=== PATIENT | female | born 1980 | race Caucasian/White ===

== ENCOUNTER 2017-06-23 14:54 | Emergency (ER) | payer OTHER ==
[2017-06-23 15:01] VITALS: BP 126/58; BMI 37.2
--- NOTE | 2017-06-23 15:33 | DR.GENAD ---
HPI - PCP Primary Care Physician: Ilya - Complaint/Symptoms Chief Complaint Doctors Comments: Patient denies fever, vomiting or diarrhea. She admits to sore throat for past two to three days. Chief Complaint:: "For about 4 days I have been having a really sore throat that comes and goes. I can't even eat when it's hurting. I threw up yesterday as well and it was mostly water. I have been having a headache that comes and goes as well with the sore throat." - Source History Provided: Patient - Mode of Arrival Mode of Arrival: Ambulatory - Timing Onset of Chief Complaint: 06/19/17 PMH - PMH Past Medical History: Yes Past Medical History: Migraines Past Surgical History: Yes Surgical History: - Family History History of Family Medical Conditions: Yes Family Medical History: Diabetes Mellitus, Cancer, [place], Coronary Artery Disease, Hypertension - Social History Does patient currently use any type of tobacco product: Yes Have you used tobacco products in the last 12 months: Yes Type of Tobacco Use: Cigarettes Does any household member use tobacco: Yes Alcohol Use: None Do you use any recreational Drugs:: No Lives With: Family Lives Where: Home - infectious screening In the last 2 months have you had wt loss of >10#?: NO Have you had fever, night sweats or hemotysis?: No Have you traveled outside the country in the last 6 months?: No Isolation: Standard ROS - Review of Systems Eyes: No Symptoms Reported ENTM: No Symptoms Reported Respiratoy: No Symptoms Reported Cardiovascular: No Symptoms Reported Gastrointestinal/Abdominal: No Symptoms Reported Genitourinary: No Symptoms Reported Neurological: No Symptoms Reported Musculoskeletal: No Symptoms Reported Integumentary: No Symptoms Reported Hematologic/Lymphatic: No Symptoms Reported Endocrine: No Symptoms Reported Psychiatric: No Symptoms Reported PE - Vital Signs Vitals: Temperature 97.9 F Pulse Rate 110 Respiratory Rate 17 Blood Pressure [Left Arm] 118/66 Blood Pressure 126/58 O2 Sat by Pulse Oximetry 98 - General General Appearance: Alert, In No Apparent Distress - Head Head Exam: Normal Inspection, Atraumatic - Eyes Eye exam: Normal Appearance, PERRL, EOMI - ENT ENT Exam: Normal Exam External Ear Exam: Normal External Inspection TM/Canal Exam: Bilateral Normal Nose Exam: Normal Nose Exam Mouth Exam: Normal Inspection Throat Exam: Normal Inspection - Neck Neck Exam: Normal Inspection, Full ROM - Chest Chest Inspection: Normal Inspection - Respiratory Respiratory Exam: Normal Lung Sounds Bilat Respiratory Exam: Bilateral Clear to Auscultation - Cardiovascular Cardiovascular Exam: Regular Rate, Normal Rhythm - Abdominal Exam Abdominal Exam: Normal Inspection Abdominal Tenderness: negative: RUQ, RLQ, LUQ, LLQ, Epigastrium, Suprapubic, Diffuse, Mild, Moderate, Severe, Other - Extremities Extremities Exam: Normal Inspection, Full ROM - Back Back Exam: Normal Inspection, Full ROM - Neurologic Neurological Exam: Alert, Oriented X3, CN II-XII Intact - Psychiatric Psychiatric Exam: Normal Affect - Skin Skin Exam: Warm, Dry, Intact Course - Reevaluation 1st: Unchanged ROR - Labs Reviewed Laboratory Results Reviewed?: Yes (strep negative) Laboratory: Streptococcus Screen Negative (NEGATIVE) 06/23/17 15:32 - Diagnosis Discharge Problem: Viral illness - Discharge Plan Condition: Stable - Follow ups/Referrals Follow ups/Referrals: DIAMOND DELUNA [Primary Care Provider] - 3 days - Instructions
== END 2017-06-23 16:21 | disposition home or self-care (01) ==
LOC: ER 15:06
DX: B97.89 Other viral agents as the cause of diseases classified elsewhere (principal); B95.61 Methicillin susceptible Staphylococcus aureus infection as the cause of diseases classified elsewhere
CPT/HCPCS: 87070; 87077; 87186; 87880; 99282

== ENCOUNTER 2025-06-23 00:30 | Observation (INO) ==
[2025-06-23 00:43] VITALS: BMI 36.9
[2025-06-23 01:11] LABS: MEAN PLATELET VOLUME 9.0 fL (7.4-11.0); RED CELL DISTRIBUTION WIDTH 18.0 % (11.6-16.5)
[2025-06-23 01:16] LABS: SERUM PREGNANCY TEST, QUAL NEGATIVE <10 mIU/mL
[2025-06-23 01:23] LABS: COR CA(FOR HYPOALB) 8.9 mg/dL (8.5-10.1); CREATININE 0.64 mg/dL (0.55-1.02); eGFR NON BLACK RACES > 60 (>60)
[2025-06-23 01:26] LABS: PLATELET MORPHOLOGY COMMENT NORMAL (NORMAL)
[2025-06-23 02:04] LABS: BLOOD/HEMOGLOBIN,URINE 2+ (NEGATIVE); LEUKOCYTE ESTERASE ,URINE NEGATIVE (NEGATIVE); NITRITES,URINE NEGATIVE (NEGATIVE)
--- NOTE | 2025-06-23 02:15 | CT ---
EXAM: CT ABDOMEN AND PELVIS WITHOUT CONTRAST HISTORY: epigastric pain ; COMPARISON: None TECHNIQUE: Axial images were obtained of the abdomen and pelvis without IV contrast. Sagittal and coronal reformatted images were provided. All images were reviewed in a variety of windows and levels. RADIATION REDUCTION TECHNIQUE: Automated exposure control, adjustment of the mA or kV according to patient size, or iterative reconstruction techniques were used. FINDINGS: Please note that lack of IV contrast does limit evaluation of the soft tissues and vascular detail. The visualized lower lung zones are clear. The heart size is within normal limits. There is no evidence of a pericardial effusion. The liver, spleen, pancreas, adrenal glands, and kidneys are grossly unremarkable. Cholelithiasis. There is no evidence of stones or signs of obstructive uropathy. The stomach, small bowel, and colon are grossly unremarkable. A few scattered diverticula are seen without evidence of diverticulitis. There are no inflammatory changes in the right lower quadrant to suggest secondary signs of acute appendicitis. Normal appendix right lower quadrant. There is no evidence of retroperitoneal or mesenteric lymphadenopathy. The uterus is present. Small fat containing umbilical hernia. There are 2 fat containing infraumbilical ventral hernias. The visualized bones are intact. There are no concerning lytic or blastic lesions identified. IMPRESSION: Cholelithiasis. Small fat containing umbilical hernia. 2 fat containing infraumbilical hernias. Mild colonic diverticulosis without evidence of diverticulitis. No acute abdominal or pelvic pathology THIS IS AN ELECTRONICALLY VERIFIED FINAL REPORT 06/23/2025 2:12 AM - Electronically signed by Tito Mccollum MD
[2025-06-23 02:22] LABS: APPEARANCE,URINE CLEAR (CLEAR); SQUAMOUS EPITHELIAL CELL,UR FEW /HPF (NEGATIVE)
[2025-06-23] MEDS: LEVSIN/MAALOX/LIDOC VISC PO ONE (02:27)
--- NOTE | 2025-06-23 02:41 | ED.ABDFE ---
HPI Time Seen Time Seen by Provider: 06/23/25 02:35 PCP Primary Care Physician: nfd Complaint Doctors Chief Complaint Comments: Patient with complaints of 2 days of right upper quadrant abdominal pain. Patient states she has had some nausea and that even has had several episodes of vomiting. Patient states she has been unable to keep food down. Denies fever. Chief Complaint:: pt ambulated to triage with complaint of epigastric pain x 2 days nausea and vomiting COVID-19 Coronavirus risk:travel/contact w/high risk person: No Has patient experienced Coronavirus symptoms: No Source History Provided: Patient Mode of arrival Mode of Arrival: Ambulatory Timing Onset of Chief Complaint: 06/20/25 PMH PMH Past Medical History: Yes Past Medical History: Migraines and GERD Past Surgical History: Yes Surgical History: Family History History of Family Medical Conditions: Yes Family Medical History: Diabetes Mellitus, [place], Coronary Artery Disease and Hypertension Social History Does patient currently use any type of tobacco product: No Have you used tobacco products in the last 12 months: No Type of Tobacco Use: None Does any household member use tobacco: No Alcohol Use: None Do you use any recreational Drugs:: No Lives With: Family Lives Where: Home Travel Risk Coronavirus risk:travel/contact w/high risk person: No Has patient experienced Coronavirus symptoms: No Infectious screening In the last 2 months have you had wt loss of >10#?: NO Have you had fever, night sweats or hemotysis?: No Have you traveled outside the country in the last 6 months?: No Isolation: Standard ROS Review of Systems Constitutional: No Symptoms Reported Eyes: No Symptoms Reported ENTM: No Symptoms Reported Respiratoy: No Symptoms Reported Cardiovascular: No Symptoms Reported Gastrointestinal/Abdominal: See HPI, Abdominal Pain, Nausea and Vomiting; negative Constipation or Diarrhea Genitourinary: No Symptoms Reported Neurological: No Symptoms Reported Musculoskeletal: No Symptoms Reported Integumentary: No Symptoms Reported Hematologic/Lymphatic: No Symptoms Reported Endocrine: No Symptoms Reported Psychiatric: No Symptoms Reported All Other Systems: Reviewed and Negative PE Vital Signs Vitals: Vital Signs Temperature 98.3 F Pulse Rate 82 Respiratory Rate 18 Respiratory Rate 18 Blood Pressure 168/93 O2 Sat by Pulse Oximetry 99 General Limitations: No Limitations and Language Barrier General Appearance: Alert and In No Apparent Distress Head Head Exam: Normal Inspection Eyes Eye exam: Normal Appearance Neck Neck Exam: Normal Inspection Chest Chest Inspection: Normal Inspection Respiratory Respiratory Exam: Normal Lung Sounds Bilat Cardiovascular Cardiovascular Exam: Regular Rate and Normal Rhythm Abdominal Exam Abdominal Exam: Normal Bowel Sounds, Soft and Tenderness (Right upper quadrant); negative Distention, Guarding, Rebound, Rigidity, Organomegaly or Ascites Rectal Rectal Exam: Deferred Neurologic Neurological Exam: Alert and Oriented X3 Psychiatric Psychiatric Exam: Normal Affect and Normal Mood Skin Skin Exam: Warm, Dry and Intact COURSE Treatment Treatment: Cholelithiasis. Some improvement with GI cocktail. Discussed multiple diagnostic and therapeutic options and patient would like to be admitted to see surgeon in the morning. Patient requested to see Dr. Felix. Consultation Called: 02:50 Consultation Comments: Discussed case with Dr. Cordova and he is agreeable to admission. ROR Labs Reviewed 06/23/25 00:50 06/23/25 00:50 Laboratory: WBC 1.5 X10^3/uL (3.6-10.0) L* 06/23/25 00:50 RBC 4.09 X10^6/uL (3.5-5.4) 06/23/25 00:50 Hgb 12.7 g/dL (12.0-16.0) 06/23/25 00:50 Hct 37.5 % (36.0-47.0) 06/23/25 00:50 MCV 91.8 fL (80.0-100.0) 06/23/25 00:50 MCH 31.2 pg (27.0-34.0) 06/23/25 00:50 MCHC 34.0 g/dL (33.0-35.0) 06/23/25 00:50 RDW 18.0 % (11.6-16.5) H 06/23/25 00:50 Plt Count 148 X10^3/uL (150.0-450.0) L 06/23/25 00:50 Plt Count Comment Decreased (ADEQUATE) A 06/23/25 00:50 MPV 9.0 fL (7.4-11.0) 06/23/25 00:50 Neut % (Auto) 17.8 % (42.0-75.0) L 06/23/25 00:50 Lymph % (Auto) 68.3 % (21.0-51.0) H 06/23/25 00:50 [place] % (Auto) 10.9 % (0.0-13.0) 06/23/25 00:50 Eos % (Auto) 1.6 % (0.9-2.9) 06/23/25 00:50 Baso % (Auto) 1.4 % (0.2-1.0) H 06/23/25 00:50 Neut # (Auto) 0.3 x10^3/uL (2.2-4.8) L 06/23/25 00:50 Lymph # (Auto) 1.0 X10^3/uL (1.3-2.9) L 06/23/25 00:50 [place] # (Auto) 0.2 x10^3/uL (0.3-0.8) L 06/23/25 00:50 Eos # (Auto) 0.0 x10^3/uL (0.0-0.2) 06/23/25 00:50 Baso # (Auto) 0.0 X10^3/uL (0.0-0.1) 06/23/25 00:50 Absolute Nucleated RBC 0.2 /100WBC 06/23/25 00:50 Total Counted 100 06/23/25 00:50 Neutrophils % (Manual) 24 % (39-76) L 06/23/25 00:50 Lymphocytes % (Manual) 64 % (13-43) H 06/23/25 00:50 Monocytes % (Manual) 10 % (4-9) H 06/23/25 00:50 Eosinophils % (Manual) 2 % (0-6) 06/23/25 00:50 Plt Morphology Comment Normal (NORMAL) 06/23/25 00:50 RBC Morphology Normal (NORMAL) 06/23/25 00:50 Sodium 138 mmol/L (136-145) 06/23/25 00:50 Corrected Sodium TNP 06/23/25 00:50 Potassium 4.0 mmol/L (3.5-5.1) 06/23/25 00:50 Chloride 103 mmol/L (98-107) 06/23/25 00:50 Carbon Dioxide 27.5 mmol/L (21-32) 06/23/25 00:50 BUN 16 mg/dL (7-18) 06/23/25 00:50 Creatinine 0.64 mg/dL (0.55-1.02) 06/23/25 00:50 Est GFR (MDRD) Af Amer > 60 (>60) 06/23/25 00:50 Est GFR (MDRD) Non-Af > 60 (>60) 06/23/25 00:50 Glucose 106 mg/dL (65-99) H 06/23/25 00:50 Calcium 8.2 mg/dL (8.5-10.1) L 06/23/25 00:50 Corrected Calcium 8.9 mg/dL (8.5-10.1) 06/23/25 00:50 Total Bilirubin 0.40 mg/dL (0.2-1.0) 06/23/25 00:50 AST 13 Units/L (15-37) L 06/23/25 00:50 ALT 16 Units/L (12-78) 06/23/25 00:50 Alkaline Phosphatase 74 Units/L (46-116) 06/23/25 00:50 Total Protein 7.2 g/dL (6.4-8.2) 06/23/25 00:50 Albumin 3.1 g/dL (3.4-5.0) L 06/23/25 00:50 Globulin 4.1 g/dL (2.5-4.5) 06/23/25 00:50 Albumin/Globulin Ratio 0.8 Ratio (1.1-2.1) L 06/23/25 00:50 Amylase 19 Units/L (25-115) L 06/23/25 00:50 Lipase 18 Units/L (16-77) 06/23/25 00:50 HCG, Qual Negative <10 mIU/mL 06/23/25 00:50 Specimen Type Clean catch urine 06/23/25 01:50 Urine Color Yellow (YELLOW) 06/23/25 01:50 Urine Appearance Clear (CLEAR) 06/23/25 01:50 Urine pH 6.0 (5.0 - 8.0) 06/23/25 01:50 Ur Specific [place] 1.025 (1.000-1.030) 06/23/25 01:50 Urine Protein 2+ (NEGATIVE) 06/23/25 01:50 Urine Glucose (UA) Negative (NEGATIVE) 06/23/25 01:50 Urine Ketones 4+ (NEGATIVE) 06/23/25 01:50 Urine Blood 2+ (NEGATIVE) 06/23/25 01:50 Urine Nitrite Negative (NEGATIVE) 06/23/25 01:50 Urine Bilirubin 1+ (NEGATIVE) 06/23/25 01:50 Urine Urobilinogen 2+ (NORMAL) 06/23/25 01:50 Ur Leukocyte Esterase Negative (NEGATIVE) 06/23/25 01:50 Urine RBC 0-2 /HPF (0-3) 06/23/25 01:50 Urine WBC 0-2 /HPF (0-5) 06/23/25 01:50 Ur Squamous Epith Cells Few /HPF (NEGATIVE) 06/23/25 01:50 Ur Transition Epith Cell Few /HPF (NEGATIVE) 06/23/25 01:50 Urine Bacteria Trace /HPF (NEGATIVE) 06/23/25 01:50 Ur Culture Indicated? No/not indicated 06/23/25 01:50 Opioid Opioid Risk Tool Age (Odilon box if 16-45): Yes History of Preadolescent Sexual Abuse: No Total: 1 Total Score Risk Category: Low Risk Copyright: Tenzin SERRA predicting aberrant behaviors Discharge Plan Diagnosis Discharge Problem: Cholelithiasis, Abdominal pain Discharge Plan Patient Disposition: 09 ADMITTED INPATIENT Condition: Stable Prescriptions: No Action [facility] Concerns: Post Hospitalization: new medications and changes needed to prevent readmission or further decline. Pt educated and given instructions on all concerns. Plan of Treatment: Continue with present treatment and follow up plan. Pt is to keep follow up appointment as instructed and take medications as ordered. Orders to Discharge Patient Discharge Orders: Transfer (Routine); Ordered 06/23/25 Ordered By: Fortino Varghese Follow ups/Referrals Follow ups/Referrals: NFD,None [Primary Care Provider] - 3 days Instructions Stand Alone Forms: Find Help Web Site, Post Hospital Follow Up Care Print Language: ERITREAN
[2025-06-23] MEDS ORDERED: NS 250 ML IV 25 ML IV PRN (02:46)
[2025-06-23] MEDS: ZOSYN VIAL 3.375 GRAMS 3.375 G in NS 100 ML IV 100 ML IV ONE (02:56)
[2025-06-23] MEDS: NS 1,000 ML IV 1,000 ML IV ONE (02:56)
[2025-06-23] MEDS ORDERED: CONSULT PHARMACY - POTASSIUM & MAGNESIUM XX SCH ×2 (03:17→07:00)
[2025-06-23] MEDS ORDERED: TYLENOL 325 MG TAB PO PRN (03:17)
[2025-06-23] MEDS ORDERED: ZOSYN VIAL 3.375 GRAMS 3.375 G in NS 100 ML IV 100 ML IV ONE (03:17)
[2025-06-23] MEDS: MORPHINE SULFATE INJ 2 MG INJ IVP PRN (03:53)
[2025-06-23] MEDS: ZOFRAN INJ 4 MG VIAL IVP PRN (03:54)
[2025-06-23] MEDS: LEVSIN/MAALOX/LIDOC VISC ONE (04:35)
[2025-06-23 06:10] LABS: RED CELL DISTRIBUTION WIDTH 17.5 % (11.6-16.5)
[2025-06-23 06:18] LABS: COR CA(FOR HYPOALB) 8.9 mg/dL (8.5-10.1); CREATININE 0.50 mg/dL (0.55-1.02); eGFR NON BLACK RACES > 60 (>60)
[2025-06-23 06:19] LABS: MEAN PLATELET VOLUME 9.3 fL (7.4-11.0)
[2025-06-23] MEDS ORDERED: ZOSYN VIAL 3.375 GRAMS 3.375 G in NS 100 ML IV 100 ML IV SCH (06:29)
[2025-06-23 06:42] LABS: PLATELET MORPHOLOGY COMMENT NORMAL (NORMAL)
--- NOTE | 2025-06-23 07:48 | EKG ---
Test Reason : chest pain Blood Pressure : */* mmHG Vent. Rate : 65 BPM Atrial Rate : 65 BPM P-R Int : 198 ms QRS Dur : 100 ms QT Int : 414 ms P-R-T Axes : 20 66 48 degrees QTc Int : 430 ms Normal sinus rhythm Normal ECG No previous ECGs available Confirmed by Demarco Curry MD ([id number]) on 06/24/2025 5:59:27 AM Referred By: Confirmed By: Demarco Curry MD
[2025-06-23] MEDS: K-RIDER 10 MEQ/100 ML WATER 10 MEQ/100 ML BAG IV SCH (10:24)
[2025-06-23] MEDS: NS 1,000 ML IV 1,000 ML IV SCH (10:24)
--- NOTE | 2025-06-23 10:41 | DR.H&P ---
H&P History & Physical for Day of: H&P Date: 06/23/25 Chief Complaint Chief Complaint: abdominal pain nausea/vomiting History of Present Illness History of Present Illness: Patient is a 44-year-old female with no past medical history reporting that for the past 2 to 3 days she has been having worsening abdominal pain. She also reports having associated nausea and vomiting. Having difficulty when she eats anything. Denies fevers or chills. Reports pain is not epigastric and right upper quadrant area. Labs/imaging: WBC 1.3, hemoglobin 11.8, platelets 139, sodium 141, potassium 3.8, creatinine 0.50, glucose 98, AST 11, ALT 9, ALP 62, UA negative, CT abdomen pelvis was obtained that revealed cholelithiasis. Patient was admitted for cholelithiasis with nausea and vomiting, dehydration. Will keep n.p.o. at this time. General surgery was consulted-Dr. Hawkins Will start patient on IV fluids normal saline at 75 mL/h. Zosyn as needed for antiemetics. Antibiotics IV Zosyn. Patient does have leukopenia and was unaware of any blood abnormalities from previous labs that she may have had done outpatient. Will continue to monitor and if indicated on discharge would probably need hematology referral. Otherwise continue with current treatment plan. Follow-up recommendations by surgery. Continue to closely monitor and follow-up labs/imaging. Past Medical History Past Medical History: Migraines and GERD Past Surgical History Surgical History: Family History Family Medical History: Diabetes Mellitus, Cancer and [place] Social History Does patient currently use any type of tobacco product: No Have you used tobacco products in the last 12 months: No Type of Tobacco Use: Cigarettes How many years tobacco product used: 12 Does any household member use tobacco: Yes Alcohol Use: Occasionally Drug Use: Marijuana Medications Home Medications: Home Medications Medication Instructions Recorded Confirmed Type NK 06/23/25 06/23/25 History Allergies Allergies Allergy/AdvReac Type Severity Reaction Status Date / Time iodine Allergy Verified 06/23/17 14:56 latex Allergy Verified 06/23/17 14:56 shrimp Allergy Verified 06/23/17 14:56 Labs 06/23/25 05:17 06/23/25 05:17 Labs: Laboratory WBC 1.3 X10^3/uL (3.6-10.0) L* 06/23/25 05:17 RBC 3.80 X10^6/uL (3.5-5.4) 06/23/25 05:17 Hgb 11.8 g/dL (12.0-16.0) L 06/23/25 05:17 Hct 34.7 % (36.0-47.0) L 06/23/25 05:17 MCV 91.3 fL (80.0-100.0) 06/23/25 05:17 MCH 31.1 pg (27.0-34.0) 06/23/25 05:17 MCHC 34.0 g/dL (33.0-35.0) 06/23/25 05:17 RDW 17.5 % (11.6-16.5) H 06/23/25 05:17 Plt Count 139 X10^3/uL (150.0-450.0) L 06/23/25 05:17 Plt Count Comment Decreased (ADEQUATE) A 06/23/25 05:17 MPV 9.3 fL (7.4-11.0) 06/23/25 05:17 Neut % (Auto) 21.4 % (42.0-75.0) L 06/23/25 05:17 Lymph % (Auto) 52.7 % (21.0-51.0) H 06/23/25 05:17 [place] % (Auto) 23.8 % (0.0-13.0) H 06/23/25 05:17 Eos % (Auto) 1.5 % (0.9-2.9) 06/23/25 05:17 Baso % (Auto) 0.6 % (0.2-1.0) 06/23/25 05:17 Neut # (Auto) 0.3 x10^3/uL (2.2-4.8) L 06/23/25 05:17 Lymph # (Auto) 0.7 X10^3/uL (1.3-2.9) L 06/23/25 05:17 [place] # (Auto) 0.3 x10^3/uL (0.3-0.8) 06/23/25 05:17 Eos # (Auto) 0.0 x10^3/uL (0.0-0.2) 06/23/25 05:17 Baso # (Auto) 0.0 X10^3/uL (0.0-0.1) 06/23/25 05:17 Absolute Nucleated RBC 1.6 /100WBC 06/23/25 05:17 Total Counted 50 06/23/25 05:17 Neutrophils % (Manual) 18 % (39-76) L 06/23/25 05:17 Lymphocytes % (Manual) 60 % (13-43) H 06/23/25 05:17 Monocytes % (Manual) 22 % (4-9) H 06/23/25 05:17 Eosinophils % (Manual) 2 % (0-6) 06/23/25 00:50 Atypical Lymphocytes Present 06/23/25 05:17 Plt Morphology Comment Normal (NORMAL) 06/23/25 05:17 RBC Morphology Normal (NORMAL) 06/23/25 05:17 Sodium 141 mmol/L (136-145) 06/23/25 05:17 Corrected Sodium TNP 06/23/25 05:17 Potassium 3.8 mmol/L (3.5-5.1) 06/23/25 05:17 Chloride 106 mmol/L (98-107) 06/23/25 05:17 Carbon Dioxide 25.1 mmol/L (21-32) 06/23/25 05:17 BUN 16 mg/dL (7-18) 06/23/25 05:17 Creatinine 0.50 mg/dL (0.55-1.02) L 06/23/25 05:17 Est GFR (MDRD) Af Amer > 60 (>60) 06/23/25 05:17 Est GFR (MDRD) Non-Af > 60 (>60) 06/23/25 05:17 Glucose 98 mg/dL (65-99) 06/23/25 05:17 Calcium 7.9 mg/dL (8.5-10.1) L 06/23/25 05:17 Corrected Calcium 8.9 mg/dL (8.5-10.1) 06/23/25 05:17 Magnesium 2.1 mg/dL (2.0-2.9) 06/23/25 05:17 Total Bilirubin 0.30 mg/dL (0.2-1.0) 06/23/25 05:17 AST 11 Units/L (15-37) L 06/23/25 05:17 ALT 9 Units/L (12-78) L 06/23/25 05:17 Alkaline Phosphatase 62 Units/L (46-116) 06/23/25 05:17 Total Protein 6.4 g/dL (6.4-8.2) 06/23/25 05:17 Albumin 2.7 g/dL (3.4-5.0) L 06/23/25 05:17 Globulin 3.7 g/dL (2.5-4.5) 06/23/25 05:17 Albumin/Globulin Ratio 0.7 Ratio (1.1-2.1) L 06/23/25 05:17 Amylase 19 Units/L (25-115) L 06/23/25 00:50 Lipase 18 Units/L (16-77) 06/23/25 00:50 HCG, Qual Negative <10 mIU/mL 06/23/25 00:50 Specimen Type Clean catch urine 06/23/25 01:50 Urine Color Yellow (YELLOW) 06/23/25 01:50 Urine Appearance Clear (CLEAR) 06/23/25 01:50 Urine pH 6.0 (5.0 - 8.0) 06/23/25 01:50 Ur Specific [place] 1.025 (1.000-1.030) 06/23/25 01:50 Urine Protein 2+ (NEGATIVE) 06/23/25 01:50 Urine Glucose (UA) Negative (NEGATIVE) 06/23/25 01:50 Urine Ketones 4+ (NEGATIVE) 06/23/25 01:50 Urine Blood 2+ (NEGATIVE) 06/23/25 01:50 Urine Nitrite Negative (NEGATIVE) 06/23/25 01:50 Urine Bilirubin 1+ (NEGATIVE) 06/23/25 01:50 Urine Urobilinogen 2+ (NORMAL) 06/23/25 01:50 Ur Leukocyte Esterase Negative (NEGATIVE) 06/23/25 01:50 Urine RBC 0-2 /HPF (0-3) 06/23/25 01:50 Urine WBC 0-2 /HPF (0-5) 06/23/25 01:50 Ur Squamous Epith Cells Few /HPF (NEGATIVE) 06/23/25 01:50 Ur Transition Epith Cell Few /HPF (NEGATIVE) 06/23/25 01:50 Urine Bacteria Trace /HPF (NEGATIVE) 06/23/25 01:50 Ur Culture Indicated? No/not indicated 06/23/25 01:50 Review of Systems Constitutional: Weakness Eyes: No Symptoms Reported ENT: No Symptoms Reported Respiratory: No Symptoms Reported Cardiovascular: No Symptoms Reported Gastrointestinal: Nausea, Vomiting and Abdominal Pain Genitourinary: No Symptoms Reported Musculoskeletal: No Symptoms Reported Skin: No Symptoms Reported Neurological: No Symptoms Reported Physical Exam Vital Signs: Vital Signs Temperature 98.4 F Pulse Rate [Left Radial] 64 Pulse Rate 79 Pulse Rate 78 Respiratory Rate 18 Respiratory Rate 24 Respiratory Rate 20 Respiratory Rate 18 Blood Pressure [Left Arm] 142/76 Blood Pressure 174/82 O2 Sat by Pulse Oximetry 97 O2 Sat by Pulse Oximetry 98 O2 Sat by Pulse Oximetry 98 Oriented: Normal Eyes: Normal Ear: Normal Nose: Normal Throat: Normal Respiratory: Clear Throughout Cardiovascular: Normal : Normal Auscultation: Bowel Sounds: Normal Palpation: Normal Tenderness: RUQ and Moderate Skin: Normal Musculoskeletal: Normal Psychiatric: Normal Mood Description: Calm and Appropriate Affect: Normal Speech Pattern: Clear and Appropriate Assessment/Plan (1) Cholelithiasis: Qualifiers: Cholelithiasis location: gallbladder Cholecystitis presence: without cholecystitis Biliary obstruction: without biliary obstruction Qualified Code(s): K80.20 - Calculus of gallbladder without cholecystitis without obstruction Status: Acute Plan: IV fluids, antiemetics, consult general surgery and follow-up recommendations. (2) Abdominal pain: Qualifiers: Abdominal location: right upper quadrant Qualified Code(s): R10.11 - Right upper quadrant pain Status: Acute (3) Nausea and vomiting: Qualifiers: Vomiting type: unspecified Qualified Code(s): R11.2 - Nausea with vomiting, unspecified Status: Acute (4) Leukopenia: Qualifiers: Leukopenia type: unspecified Qualified Code(s): D72.819 - Decreased white blood cell count, unspecified Status: Acute (5) Dehydration: Status: Acute Review H&P Reviewed: Yes Patient was examined?: Yes
[2025-06-23] MEDS: ZOSYN VIAL 3.375 GRAMS 3.375 G in NS 100 ML IV 100 ML IV SCH (13:14)
[2025-06-23] MEDS: NORCO 5/325 MG TAB PO PRN (14:29)
[2025-06-23] MEDS ORDERED: NS 250 ML IV 250 ML IV ONE (21:09)
[2025-06-23] MEDS: NS 250 ML IV 25 ML IV PRN (21:11)
[2025-06-24 06:00] LABS: MEAN PLATELET VOLUME 8.6 fL (7.4-11.0); RED CELL DISTRIBUTION WIDTH 17.1 % (11.6-16.5)
[2025-06-24 06:13] LABS: COR CA(FOR HYPOALB) 8.9 mg/dL (8.5-10.1); CREATININE 0.54 mg/dL (0.55-1.02); eGFR NON BLACK RACES > 60 (>60)
[2025-06-24 06:57] LABS: PLATELET MORPHOLOGY COMMENT NORMAL (NORMAL)
[2025-06-24] MEDS: MORPHINE SULFATE INJ 4 MG IVP PRN ×2 (09:43→15:29)
--- NOTE | 2025-06-24 12:20 | RAD ---
EXAM: KUB HISTORY: left sided abdomen pain; . COMPARISON: None. TECHNIQUE: Frontal view of the abdomen was submitted for interpretation. FINDINGS: Bowel gas pattern is non-obstructive, but not accurately assessed on supine KUB examination. No definite radio-opaque calculi are visualized over expected course of the kidneys, ureters, or urinary bladder. Bones appear within normal limits. IMPRESSION: No acute intra-abdominal process. THIS IS AN ELECTRONICALLY VERIFIED FINAL REPORT 06/24/2025 12:17 PM - Electronically signed by Ike Lara MD
--- NOTE | 2025-06-24 15:28 | NOTE.SOAP ---
Soap Note Note for Day of Date of Exam: 06/24/25 Subjective Data Subjective Data: Patient seen with nurse for daily rounds. Surgery is not recommending any intervention at this time, suspect diverticulitis. Her pain has moved from the right upper quadrant to the left upper quadrant and ascending downward. No hematuria, diarrhea, nausea, or vomiting overnight. She rested fairly well. Pain is less severe overall. Objective Data Objective Data: Well-developed, well-nourished female in no acute distress. Sitting on the edge of the bed. Head NCAT, hearing grossly normal. Heart regular rate and rhythm, lungs clear. Belly soft with mild left-sided tenderness and bowel sounds are present. Mood and affect are appropriate. Assessment Assessment: Abdominal pain; originally right upper quadrant, now left lateral. Leukopenia Thrombocytopenia Anemia without erythropenia Cholelithiasis Plan Plan: Continue neutropenic precautions. Continue antibiotics. Close monitoring for change in status.
[2025-06-24] MEDS: COLACE CAP 100 MG PO SCH (20:43)
[2025-06-25 07:04] LABS: MEAN PLATELET VOLUME 8.8 fL (7.4-11.0); RED CELL DISTRIBUTION WIDTH 17.5 % (11.6-16.5)
[2025-06-25 07:14] LABS: COR CA(FOR HYPOALB) 9.0 mg/dL (8.5-10.1); CREATININE 0.54 mg/dL (0.55-1.02); eGFR NON BLACK RACES > 60 (>60)
[2025-06-25 07:31] LABS: PLATELET MORPHOLOGY COMMENT NORMAL (NORMAL)
--- NOTE | 2025-06-25 13:04 | NOTE.SOAP ---
Soap Note Note for Day of Date of Exam: 06/25/25 Subjective Data Subjective Data: Patient seen for daily rounds with nurse. No acute events overnight. Did have a good bowel movement yesterday. Pain still will double her over but is intermittent. She thinks it is occurring less often. She does think it is only left-sided, currently. It initially was diffuse with a significant presence in the right upper quadrant, though. Labs and vitals essentially unchanged. Objective Data Objective Data: Well-developed, well-nourished, obese female in no acute distress. Sit on the edge of her bed. Heart regular rate and rhythm, lungs clear, speech strong. Mood and affect are appropriate. No swelling of her extremities. Belly is soft and nontender with bowel sounds normoactive. Assessment Assessment: Left-sided abdominal pain Cholelithiasis, Leukopenia, Anemia of chronic disease, Thrombocytopenia Plan Plan: Neutropenic precautions, continue IV antibiotics, nausea medicines as needed. Suspect that she will discharge in the next 24-48 hours but will need follow-up with PCP, hematology, and GI/surgery. I think, at this point, that she does have a lingering enteritis.
[2025-06-26 06:09] LABS: MEAN PLATELET VOLUME 9.0 fL (7.4-11.0); RED CELL DISTRIBUTION WIDTH 17.7 % (11.6-16.5)
[2025-06-26 06:10] LABS: COR CA(FOR HYPOALB) 9.4 mg/dL (8.5-10.1); CREATININE 0.47 mg/dL (0.55-1.02); eGFR NON BLACK RACES > 60 (>60)
[2025-06-26 06:50] LABS: PLATELET MORPHOLOGY COMMENT NORMAL (NORMAL)
[2025-06-26] MEDS ORDERED: MILK OF MAGNESIA ONE (08:35)
[2025-06-26] MEDS: MILK OF MAGNESIA PO PRN (08:41)
[2025-06-26 12:14] VITALS: BP 150/80; PULSE 71; TEMP 98.2; O2SAT 96
[2025-06-26] MEDS: ULTRAM PO PRN (13:09)
[2025-06-26 13:10] VITALS: RESP 21
== END 2025-06-26 16:05 | disposition home or self-care (01) ==
LOC: ER 00:30 → MED/SURG 00:30
PROVIDERS: ADMIT Family Medicine; ATTEND Family Medicine
DX: E83.51 Hypocalcemia; D72.819 Decreased white blood cell count, unspecified; R10.13 Epigastric pain; D64.9 Anemia, unspecified; R82.71 Bacteriuria; R80.9 Proteinuria, unspecified; K21.9 Gastro-esophageal reflux disease without esophagitis; R31.9 Hematuria, unspecified; K80.20 Calculus of gallbladder without cholecystitis without obstruction; R10.11 Right upper quadrant pain; D69.6 Thrombocytopenia, unspecified; Z72.0 Tobacco use; R11.2 Nausea with vomiting, unspecified; E86.0 Dehydration; R07.89 Other chest pain; R73.09 Other abnormal glucose; K57.92 Diverticulitis of intestine, part unspecified, without perforation or abscess without bleeding; Z29.89 Encounter for other specified prophylactic measures